=== PATIENT | female | born 1985 | race Caucasian/White ===

== ENCOUNTER 2022-05-21 19:46 | Emergency (ER) | payer MEDICAID, SELFPAY ==
[2022-05-21] MEDS ORDERED: Sodium Chloride 0.9% 1,000 ML IV ONE (20:00)
[2022-05-21 20:50] LABS: CARBON DIOXIDE,CO2 25.5 mmol/L (21.0-32.0); POTASSIUM,K 3.9 mmol/L (3.5-5.1)
[2022-05-21] MEDS ORDERED: Nitrofurantoin Monohydrate/Macrocrystalline 100 MG Cap PO ONE (21:30)
== END 2022-05-21 21:55 | disposition home or self-care (01) ==
LOC: MW.ED 19:46
DX: O20.9 Hemorrhage in early pregnancy, unspecified (principal); Z3A.01 Less than 8 weeks gestation of pregnancy; Z79.899 Other long term (current) drug therapy; Z88.1 Allergy status to other antibiotic agents; Z90.49 Acquired absence of other specified parts of digestive tract
CPT/HCPCS: 36415; 80053; 81001; 81025; 84702; 85025; 86900; 86901; 87086; 99284; A9270; 99283

== ENCOUNTER 2022-10-18 16:51 | Emergency (ER) | payer BC ==
[2022-10-18 18:48] LABS: CARBON DIOXIDE,CO2 26.4 mmol/L (21.0-32.0); POTASSIUM,K 4.1 mmol/L (3.5-5.1)
== END 2022-10-18 19:22 | disposition home or self-care (01) ==
LOC: MW.ED 16:51
DX: O99.891 Other specified diseases and conditions complicating pregnancy (principal); R10.30 Lower abdominal pain, unspecified; R10.814 Left lower quadrant abdominal tenderness; R10.813 Right lower quadrant abdominal tenderness; Z3A.19 19 weeks gestation of pregnancy; Z88.1 Allergy status to other antibiotic agents
CPT/HCPCS: 36415; 80053; 81001; 84702; 85025; 99284

== ENCOUNTER 2023-03-08 08:10 | Inpatient (IN) | payer BC ==
[2023-03-08] MEDS ORDERED: Methylergonovine 0.2 MG/1 ML Amp IM PRN ×3 (10:33→12:40)
[2023-03-08] MEDS ORDERED: Lanolin 100% Cream 7 GM Tube TOP PRN ×2 (10:33→12:40)
[2023-03-08] MEDS ORDERED: Oxytocin 10 Units/1 ML SDV IM PRN ×2 (10:33→12:40)
[2023-03-08] MEDS ORDERED: Tranexamic Acid 1,000 MG in Sodium Chloride 0.9% 100 ML IV PRN ×2 (10:33→12:40)
[2023-03-08] MEDS ORDERED: diphenhydrAMINE 50 MG/ML SDV IVPUSH PRN ×3 (10:33→12:40)
[2023-03-08] MEDS ORDERED: Bisacodyl 10 MG Supp RECTAL PRN ×2 (10:33→12:40)
[2023-03-08] MEDS ORDERED: Ondansetron 4 MG/2 ML SDV IVPUSH PRN ×3 (10:33→12:40)
[2023-03-08] MEDS ORDERED: Misoprostol 200 MCG Tab RECTAL PRN ×2 (10:33→12:40)
[2023-03-08] MEDS ORDERED: Sodium Chloride 0.9% 20 ML SDV IV PRN (10:40)
[2023-03-08] MEDS ORDERED: Sodium Chloride 0.9% 2.5 ML Syringe FLUSH PRN (10:40)
[2023-03-08] MEDS ORDERED: Sodium Chloride 0.9% 10 ML Syringe FLUSH PRN (10:40)
[2023-03-08] MEDS ORDERED: Carboprost Tromethamine 250 MCG/1 mL Vial IM PRN (10:40)
[2023-03-08] MEDS ORDERED: Water For Irrigation,Sterile 1,000 ML Container IRR PRN (10:40)
[2023-03-08] MEDS ORDERED: Lidocaine 1% 50 ML MDV INJECT PRN (10:40)
[2023-03-08] MEDS ORDERED: ceFAZolin 2 GM in Sodium Chloride 0.9% 50 ML IV ONE (10:40)
[2023-03-08] MEDS ORDERED: Lactated Ringers 1,000 ML IV SCH ×2 (10:45→12:45)
[2023-03-08] MEDS ORDERED: Ketorolac 30 MG/ML SDV IVPUSH SCH ×2 (10:45→12:45)
[2023-03-08] MEDS ORDERED: Dexmedetomidine 200 MCG/2 ML SDV ONE (10:48)
[2023-03-08] MEDS ORDERED: Morphine PF 10 MG/10 ML SDV ONE (10:48)
[2023-03-08] MEDS ORDERED: ePHEDrine 50 MG/ML SDV IVPUSH PRN (10:58)
[2023-03-08 11:00] LABS: HEMOGLOBIN 11.2 g/dL (12.0-16.0); MEAN CORPUSCULAR HEMOGLOBIN 27.3 pg (27.0-32.0); MEAN CORPUSCULAR VOLUME 85.2 fL (80.0-98.0); MEAN PLATELET VOLUME 11.6 fL (7.40-12.00); RED BLOOD CELL COUNT 4.11 M/uL (4.30-5.90); WHITE BLOOD CELL COUNT,WBC 9.17 K/uL (4.0-11.0)
[2023-03-08] MEDS ORDERED: Famotidine 20 MG/2 ML SDV ONE (11:07)
[2023-03-08] MEDS ORDERED: ceFAZolin 2 GM Vial ONE (11:44)
[2023-03-08] MEDS ORDERED: Oxytocin 10 Units/1 ML SDV ONE (11:54)
[2023-03-08] MEDS ORDERED: Ketorolac 30 MG/ML SDV ONE (12:06)
[2023-03-08] MEDS ORDERED: Ropivacaine 0.5% 5 MG/ML 30 ML SDV ONE (12:06)
[2023-03-08] MEDS ORDERED: Ibuprofen 800 MG Tab PO PRN (12:40)
[2023-03-08] MEDS ORDERED: Acetaminophen/oxyCODONE 325-5 MG Tab PO PRN ×2 (12:40)
[2023-03-08] MEDS: Lactated Ringers 1,000 ML IV SCH ×2 (13:11→15:00)
[2023-03-08] MEDS ORDERED: Acetaminophen 500 MG Tab PO PRN (18:00)
[2023-03-08] MEDS: Ketorolac 30 MG/ML SDV IVPUSH SCH (18:01)
[2023-03-08] MEDS ORDERED: Docusate Sodium 100 MG Cap PO SCH (21:00)
[2023-03-08] MEDS: Docusate Sodium 100 MG Cap PO SCH (22:53)
[2023-03-09] MEDS: Ketorolac 30 MG/ML SDV IVPUSH SCH ×3 (00:05→11:40)
[2023-03-09 07:34] LABS: HEMATOCRIT 29.4 % (36.0-46.0); HEMOGLOBIN 9.2 g/dL (12.0-16.0)
[2023-03-09] MEDS: Docusate Sodium 100 MG Cap PO SCH ×2 (09:07→20:19)
[2023-03-09] MEDS: Acetaminophen/oxyCODONE 325-5 MG Tab PO PRN ×2 (16:13→20:17)
[2023-03-09] MEDS: Ibuprofen 800 MG Tab PO PRN (18:04)
[2023-03-10] MEDS: Acetaminophen/oxyCODONE 325-5 MG Tab PO PRN ×3 (01:27→10:38)
[2023-03-10] MEDS: Docusate Sodium 100 MG Cap PO SCH (08:31)
[2023-03-10] MEDS: Ibuprofen 800 MG Tab PO PRN (08:31)
== END 2023-03-10 12:58 | disposition home or self-care (01) | DRG 540 ==
LOC: MW.OB 08:10 → OBSVTOIN 12:02 → MW.OB 12:02
PROVIDERS: ADMIT Obstetrics & Gynecology; ATTEND Obstetrics & Gynecology
PROC: 10D00Z1 Extraction of Products of Conception, Low, Open Approach (ICD-10-PCS; principal; 2023-03-08)
DX: O34.211 Maternal care for low transverse scar from previous cesarean delivery (principal); O99.214 Obesity complicating childbirth; Z88.1 Allergy status to other antibiotic agents; Z91.040 Latex allergy status; Z90.49 Acquired absence of other specified parts of digestive tract; Z3A.38 38 weeks gestation of pregnancy; Z37.0 Single live birth; Z79.899 Other long term (current) drug therapy
CPT/HCPCS: 36415; 59025; 84112; 85014; 85018; 85027; 86592; 86850; 86900; 86901; A9270-GY; J0131; J0690; J1885; J2274; J2590; J2795; J3490; J7120

== ENCOUNTER 2024-09-03 05:56 | Emergency (ER) | payer OTHER ==
[2024-09-03] MEDS: Sodium Chloride 0.9% 1,000 ML IV ONE (06:25)
[2024-09-03] MEDS: Ondansetron 4 MG/2 ML SDV IVPUSH ONE (06:25)
[2024-09-03] MEDS: Ketorolac 30 MG/ML SDV IVPUSH ONE (06:25)
[2024-09-03] MEDS: Ibuprofen 400 MG Tab PO ONE ×2 (06:36→06:55)
[2024-09-03] MEDS: Ondansetron 4 MG Tab PO ONE (06:36)
[2024-09-03] MEDS: predniSONE 20 MG Tab PO ONE (06:58)
[2024-09-03] MEDS: Amoxicillin 500 MG Cap PO ONE (08:19)
== END 2024-09-03 08:20 | disposition home or self-care (01) ==
LOC: MW.ED 05:56
DX: J02.0 Streptococcal pharyngitis (principal); E66.9 Obesity, unspecified; Z90.49 Acquired absence of other specified parts of digestive tract; Z88.1 Allergy status to other antibiotic agents; Z91.041 Radiographic dye allergy status; Z75.8 Other problems related to medical facilities and other health care
CPT/HCPCS: 87428; 87651; 99284; A9270; 99283